=== PATIENT | male | born 1970 | race Caucasian/White ===

== ENCOUNTER 2023-11-26 15:33 | Emergency (ER) | payer BC, SELFPAY ==
[2023-11-26 15:35] VITALS: BP 146/78
[2023-11-26 15:38] VITALS: BP 116/87
--- NOTE | 2023-11-26 15:55 | ED.GENMED ---
History of Present Illness
General
Chief Complaint: Back Pain
Source: patient
Exam Limitations: none
Time Seen by Provider: 11/26/23 15:41
Nursing documentation reviewed up to this point in time: agreed with
Travel History
Have you had any contact with someone who has COVID-19?: No
Do you have any symptoms of coronavirus? Fever > 100 degrees, chills, cough, shortness of breath, sore throat, loss of taste or smell, muscle aches, or headache?: No
History of Present Illness
History of Present Illness:
Patient to ED with left flank pain radiating to left abd. States he was golfing today and pain began gradually. Pain continued to escalate and now is severe. Denies fever/chills, recent illness. +nausea. No v/d. Hx kidney stones over 30yrs
ago. Brought self to ED for eval.
Past History
Past History
ED Past Medical History: Other (Kidney stones, seasonal allergies)
Review of Systems
Review of Systems
Allergies reviewed?: Yes
All Other Systems: ROS reviewed and negative except as documented in HPI and ROS
Constitutional: Reports no symptoms
EENT: Reports no symptoms
Respiratory: Reports no symptoms
Cardiac: Reports no symptoms
ABD/GI: Reports no symptoms
: Reports flank pain
Musculoskeletal: Reports no symptoms
Skin: Reports no symptoms
Neurological: Reports no symptoms
Psychiatric: Reports no symptoms
Phy Exam
General Physical Exam
General Presentation: moderate distress
General age: appears stated age
General Skin: warm and dry
General Habitus: normal
General Mental: alert
Gastrointestinal Exam
Gastrointestinal Exam: normal bowel sounds, soft, no organomegaly and other (Left flank pain radiating to left abdomen. No pain to palpation)
Musculoskeletal Exam
Musculoskeletal Exam: full ROM and neuro vasc intact
Skin Exam
Skin Exam: normal color, warm/dry and no rash
Psychiatric Exam
Psychiatric Exam: normal mood/affect
Course
Orders/Labs/Results
Orders:
Orders
11/26/23 15:37
ECG [Electrocardiogram (*1)] Urgent
Reason for Study: Abdominal Pain
11/26/23 15:38
EKG- Treatment ONCE
11/26/23 15:53
Abdomen/Pelvis wo Contrast CT [CT Abd/pelvis Wo Iv Cont] Urgent
Comment:
Reason For Exam: left flank pain
Ketorolac [Toradol] 30 mg IV NOW STA
Ondansetron Injectable [Zofran] 4 mg IV NOW STA
11/26/23 15:54
0.9% Sodium Chloride 1000 ml [Nss] 1,000 ml IV BOLUS
11/26/23 16:01
Complete Blood Count/With Diff Urgent
Comprehensive Metabolic Panel Urgent
Urinalysis Reflex To Culture Urgent
Date Specimen was Collected: 11/26/23
Time Specimen was Collected: 15:59
Urine Microscopic Reflex Cult Urgent
11/26/23 16:28
HYDROmorphone [Dilaudid] 0.5 mg IV NOW STA
11/26/23 16:54
HYDROmorphone [Dilaudid] 0.5 mg IV NOW STA
11/26/23 20:03
HYDROmorphone [Dilaudid] 0.5 mg IV NOW STA
Tamsulosin [Flomax] 0.4 mg PO NOW STA
Abnormal Lab Results
11/26/23
16:01
Absolute Monos (auto) 0.7 H 10^3/uL
(0.1-0.6)
Urine Ketones 2+ A
(Negative)
Ur Occult Blood Reflex 4+ A
(Negative)
Urine Bacteria (Reflex) Few A
(Negative)
11/26/23 16:01
11/26/23 16:01
Vital Signs
Initial and Last Documented VS:
Initial Vital Signs
Temp Pulse Resp BP Pulse Ox
98.0 F 60 18 146/78 98
11/26/23 15:35 11/26/23 15:35 11/26/23 15:35 11/26/23 15:35 11/26/23 15:35
Last Documented Vital Signs
Temp Pulse Resp BP Pulse Ox
98.0 F 59 14 139/78 94
11/26/23 15:35 11/26/23 19:15 11/26/23 19:15 11/26/23 19:00 11/26/23 19:15
*Radiology
Radiology exam reviewed: radiology read reviewed
*Pulse Oximetry
Patient hypoxic: no
*Critical Care Note
Total Time (30-74mins, 75-104mins- exclusive of procedures): Not Applicable
Update Note
Update Note:
Patient to ED with left flank pain. CT confirms 3mm left proximal ureteral stone. Incidental findings of bilateral renal cysts. Discussed findings with patient and spouse. Will discharge home on flomax and pain medications. He will follow upw
[facility] urology this week. Given instructions on s/s to return to ED and he is agreeable to plan.
ED Attending Note
-
Portions of this chart may have been created with voice recognition software.� Occasional wrong word or��sound alike� substitutions may have occurred due to the inherent limitations of voice recognition software.
Discharge Plan
Departure
Patient Disposition: Home (Routine Discharge)
Date of Disposition: 11/26/23
Time of Disposition: 20:03
Patient with high blood pressure during this ER visit?: No
Condition: Good
Covid-19: Not Applicable
Discharge Problem:
Kidney stone
Instructions: Kidney stones in adults
Prescriptions:
New
tamsulosin [Flomax] 0.4 mg capsule
0.4 mg PO DAILY Qty: 14 0RF
oxycodone 5 mg capsule
5 mg PO Q4H PRN (Reason: Pain) Qty: 14 0RF
Referrals:
Odin Thurston MD [Active] - Call in 1-3 days for appt
UNKNOWN - PT DOES,NOT KNOW [Family Provider] -
Interventions
Interventions:
*Nursing Disposition Last Done: 11/26/23 20:25
ED-Musculoskeletal Assessment Last Done: 11/26/23 16:15
Discharge Date and Time
Discharge Date/Time: 11/26/23 20:26
Print Language: CITIZEN [place]
[2023-11-26] MEDS: ZOFRAN 4 MG IV (16:01)
[2023-11-26 16:02] VITALS: BMI 28.1
[2023-11-26] MEDS: NSS 1000 IV (16:02)
[2023-11-26] MEDS: TORADOL 30 MG IV (16:02)
[2023-11-26 16:17] LABS: % Basophils 0.7 % (0-2); % Eosinophils 2.7 % (0-6); % Immature Granulocytes 0.4 % (0-0.5); % Lymphocytes 22.8 % (20.5-51.1); % Neutrophils 66.4 % (42.2-75.2); Absolute Basophils 0.1 10^3/uL (0-0.2); Absolute Eosinophils 0.3 10^3/uL (0-0.7); Absolute Lymphocytes 2.2 10^3/uL (1.2-3.4); Absolute Monocytes 0.7 10^3/uL (0.1-0.6); Absolute Neutrophils 6.3 10^3/uL (1.4-6.5); Hematocrit 44.4 % (39.0-52.0); Hemoglobin 15.4 g/dL (13.0-18.0); Mean Corp Hgb Conc. 34.7 g/dL (33.0-37.0); Mean Corpuscular Hgb 30.1 pg (27.0-31.0); Mean Corpuscular Volume 86.9 fL (80.0-94.0); Mean Platelet Volume 9.7 fL (7.4-10.4); Nucleated Red Blood Cells % 0 % (-); Platelet Count 213 10^3/uL (130-400); Red Blood Cell Count 5.11 10^6/uL (4.70-6.10); Red Cell Dist. Width 12.9 % (11.5-14.5); White Blood Cell Count 9.4 10^3/uL (4.8-10.8)
[2023-11-26] MEDS: DILAUDID 0.5 MG IV ×3 (16:30→20:15)
[2023-11-26 16:45] LABS: ALT (SGPT) 23 U/L (0-50); AST (SGOT) 34 U/L (17-59); Albumin 4.7 g/dl (3.5-5.0); Alkaline Phosphatase 84 U/L (38-126); Blood Urea Nitrogen 17 mg/dl (9-20); Calcium 9.7 mg/dl (8.4-10.2); Carbon Dioxide 25 mmol/L (22-30); Chloride 103 mmol/L (98-107); Estimated Creatinine Clearance 85 ml/min; Glucose 98 mg/dl (70-99); Potassium 4.2 mmol/L (3.5-5.1); Sodium 140 mmol/L (135-145); Total Bilirubin 0.7 mg/dl (0.2-1.3); eGFR > 60.00
[2023-11-26 18:55] VITALS: BP 137/75
[2023-11-26 19:00] VITALS: BP 139/78
[2023-11-26 19:51] LABS: Urine Albumin Negative (Neg - Trace); Urine Bilirubin Negative (Negative); Urine Character Clear (Clear); Urine Color Yellow; Urine Glucose Negative (Negative); Urine Ketone 2+ (Negative); Urine Leukocyte Negative (Negative); Urine Nitrite Negative (Negative); Urine Occult Blood 4+ (Negative); Urine Urobilinogen Negative (Neg - 1+)
[2023-11-26 19:58] LABS: Urine Uric Acid Crystals Present
[2023-11-26 20:00] LABS: Urine Amorphous Seen; Urine Red Blood Cell 0-2 /HPF (0-2); Urine Urothelial Cell 0-2 /LPF (FEW); Urine White Cell 0-2 /HPF (0-5)
[2023-11-26 20:01] LABS: Urine Bacteria Few (Negative)
[2023-11-26] MEDS: FLOMAX 0.400000000000000022 MG PO (20:16)
== END 2023-11-26 20:26 | disposition home or self-care (01) ==
LOC: EMR 15:33
PROVIDERS: Nurse Practitioner; EMERGENCY PHYSICIAN Emergency Medicine
DX: N20.0 Calculus of kidney (principal); N28.1 Cyst of kidney, acquired; Z87.442 Personal history of urinary calculi; Z91.048 Other nonmedicinal substance allergy status
CPT/HCPCS: 99284; 96374; 96375 ×2; 96361; 96376; 74176; 80053; 81003; 81015; 85025; 93005